=== PATIENT | female | born 1925 | race Caucasian/White ===

== ENCOUNTER 2016-12-13 18:50 | Emergency (ER) | payer OTHER, MEDICARE ==
--- NOTE | ~2016-12-13 | EKG ---
PATIENT: DEVORAH CAT UNIT #: [id number] Ventricular Rate: 119 BPM Atrial Rate: 138 BPM QRS Duration: 70 ms Q-T Interval: 282 ms QTC Calculation(Bezet): 396 ms Calculated R Hale: 25 degrees Calculated T Hale: -2 degrees Diagnosis Line: Atrial fibrillation with rapid ventricular Diagnosis Line: response Diagnosis Line: Abnormal ECG Diagnosis Line: When compared with ECG of 03-OCT-2016 15:34, Diagnosis Line: Vent. rate has increased BY 43 BPM Diagnosis Line: Confirmed by ANABELA HAYWARD MD ([id number]) on Diagnosis Line: 12/15/2016 8:45:59 AM INTERPRETING : [facility]
[~2016-12-13 18:50] MED LIST: ARICEPT PO; ASPIRIN PO; ATENOLOL PO; ATENOLOL-CHLOR1 EACH PO; CARDIZEM PO; DILTIAZEM 24HR180 M2 PO; DILTIAZEM ER240 M1 PO; IRON PO; KLOR-CON PO; LASIX PO; LASIX20 MG PO; LOW DOSE ASPIRI81 M1 PO; MEMANTINE HCL5 MG PO; MULTI VITAMIN1 EACH; SYNTHROID PO; TIROSINT25 MCG PO; XARELTO15 MG PO
[2016-12-13 18:55] LABS: BASOPHIL% 0.2 % (0-2.5); HEMATOCRIT 30.4 % (35.0-45.0); HEMOGLOBIN 8.9 gm/dL (12.0-16.0); LYMPHOCYTE# 1.1 X10e3 (1.0-3.5); LYMPHOCYTE% 18.2 % (17.0-45.0); MEAN CORPUSCULAR HGB CONC 29.4 g/dL (30-36); MEAN PLATELET VOLUME 9.1 FL (6.5-11.5); MONOCYTE# 0.5 X10e3 (0-1.0); MONOCYTE% 8.1 % (3.0-12.0); NEUTROPHIL# 4.6 X10e3 (1.5-7.1); NEUTROPHIL% 73.5 % (40-75); PLATELET COUNT 264 X10e3 (140-420); RED BLOOD COUNT 4.47 X10e (3.90-5.30); RED CELL DISTRIBUTION WIDTH 18.5 % (11.0-15.5); WHITE BLOOD COUNT 6.3 X10e3 (4.0-10.5)
[2016-12-13 18:59] LABS: INR 1.1; PROTHROMBIN TIME (PATIENT) 12.1 SECONDS (9.6-11.5)
[2016-12-13 19:00] LABS: ALBUMIN SERUM 4.1 g/dL (3.5-5.0); ALKALINE PHOSPHATASE 73 U/L (32-92); ALT (SGPT) 15 U/L (10-40); AST (SGOT) 23 U/L (10-42); BILIRUBIN,TOTAL 0.4 mg/dL (0.2-2.0); BLOOD UREA NITROGEN 40 mg/dL (9-23); BUN/CREATININE RATIO 28.57; CALCIUM SERUM 9.2 mg/dL (8.4-10.2); CARBON DIOXIDE 21 mmol/L (22-31); CHLORIDE 107 mmol/L (100-111); CREATININE SERUM 1.4 mg/dL (0.6-1.4); DIFF IND NO; GLOM FILT RATE Estimated 33.2 mL/min (>60); GLUCOSE FASTING 100 mg/dL (70-110); POTASSIUM 4.2 mmol/L (3.5-5.1); PROTEIN TOTAL SERUM 7.8 g/dL (6.0-8.3); SODIUM 137 mmol/L (135-145)
[2016-12-13 19:07] LABS: BILIRUBIN, DIRECT <0.1 mg/dL (0.0-0.2); BILIRUBIN,INDIRECT 0.3 mg/dL (0.0-0.9)
== END 2016-12-13 20:32 | disposition home or self-care (01) ==
LOC: CED 18:50
PROVIDERS: Emergency Medicine
DX: D64.9 Anemia, unspecified (principal); I48.91 Unspecified atrial fibrillation
CPT/HCPCS: 80048; 80076; 85025; 85610; 85730; 86850; 86900; 86901; 93005; 96374; 99283